=== PATIENT | female | born 1995 | race African-American/Black ===

== ENCOUNTER 2023-04-08 20:40 | Outpatient (CLI) | payer OTHER ==
[~2023-04-08] VITALS: Ht 157.5 cm; Wt 91.3 kg
[~2023-04-08 20:40] MED LIST: REGLAN 10MG10 MG/TAB PO
--- NOTE | 2023-04-08 20:50 | NUR ---
Ambulatory to unit, accompanied by spouse for assessment. Oriented to room, monitor, plan of care. Pt reports back pain 'x 3-4 days but worse since 1900' Pt denies LOF or vaginal bleeding.
[2023-04-08 21:05] VITALS: BP 120/72; PULSE 105; TEMP 97.9
[2023-04-08] MEDS ORDERED: PRENATAL MVI PO (21:36)
--- NOTE | 2023-04-08 22:25 | NUR ---
Discharge instructions reviewed with pt and spouse. Questions invited and answered.
== END 2023-04-08 22:48 | disposition home or self-care (01) ==
LOC: LDRO 20:40
DX: O99.891 Other specified diseases and conditions complicating pregnancy (principal); M54.9 Dorsalgia, unspecified; Z3A.33 33 weeks gestation of pregnancy